=== PATIENT | female | born 1970 | race Caucasian/White ===

== ENCOUNTER 2016-10-11 09:58 | Emergency (ER) | payer OTHER ==
[~2016-10-11 09:58] MED LIST: ADVAIR 2501 DISK W/D; AMITRIPTYLINE H10 M1 PO; CELEXA20 MG; CELEXA40 M2 PO; CINNAMON500 M1 PO; CIPRO XR500 MG PO; CIPRO500 MG PO; CLARITIN10 M6 PO; CLARITIN10 M8 PO; CLARITIN10 MG; CLARITIN10 MG PO; COCONUT OIL100 GM MC; COMPAZINE10 M PO; COMPAZINE10 MG PO; COMPAZINE25 MG/SUPP PR; DOXYCYCLINE HY100 M3 PO; ESTRACE0.5 MG PO; ESTROVEN MOOD400 MCG PO; FLAGYL500 MG PO; FLOVENT DISKU100 MCG IH; GLUCOPHAGE1000 M1 PO; LISINOPRIL40 M1 PO; MAGNESIUM OXID400 M1 PO; METFORMIN HCL500 M2 PO; MOTRIN IB200 M1 PO; NASONEX17 GM; NEURONTIN300 M1 PO; NORCO 10-325 T1 EACH PO; NORCO 5-325 TA1 EACH PO; NORCO 5/325 TAB1 TAB PO; PERCOCET 5/3251 TAB PO; PREMARIN0.45 MG; PREMARIN0.625 MG; SINGULAIR10 M1 PO; SINGULAIR10 MG PO; TOPAMAX50 MG; ULTRAM50 MG PO; VIBRAMYCIN100 M1 PO; VITAMIN C250 M1 PO; VITAMIN D400 UNI5 PO; WELLBUTRIN XL150 M1 PO; WELLBUTRIN100 M2 PO; ZESTRIL20 M3 PO
[2016-10-11] MEDS ORDERED: ESTRACE1 M3 PO (10:15)
[2016-10-11 11:15] LABS: BASO % 0.7 % (0-2); BASO ABSOLUTE COUNT 0.1 tho/cmm (0.0-0.2); EOS % 5.1 % (0-7); EOSINOPHIL ABSOLUTE COUNT 0.6 tho/cmm (0.0-0.7); HCT-HEMATOCRIT 34.2 % (34.0-49.0); HGB-HEMOGLOBIN 11.3 gm/dl (12.0-15.5); IMMATURE GRANULOCYTES ABSOLUTE 0.04 tho/cmm (0-0.03); IMMATURE GRANULOCYTES PERCENT 0.4 % (0-0.3); LYMPH % 23.8 % (20-45); LYMPH ABSOLUTE COUNT 2.6 tho/cmm (0.8-4.5); MCH (MEAN CORPUSCULAR HGB) 28.3 pg (28.0-32.0); MCV (MEAN CELL VOLUME) 85.5 fl (82.0-96.0); MEAN PLATELET VOLUME 10.2 cmc (9.4-12.4); MONO % 5.9 % (0-12); MONOCYTE ABSOLUTE COUNT 0.6 tho/cmm (0.0-1.2); NEUTROPHIL ABSOLUTE COUNT 6.9 tho/cmm (1.6-8.0); NEUTROPHIL-AUTOMATED 6.9 tho/cmm (1.6-8.0); NEUTROPHILS % 64.1 % (40-80); PLATELET COUNT 279 tho/cmm (150-450); RED CELL DISTRIBUTION WIDTH 14.2 % (12.4-16.4); WHITE BLOOD COUNT 10.8 tho/cmm (4.0-10.0)
[2016-10-11 11:26] LABS: ANION GAP 19 mmol/L (0-20); BLOOD UREA NITROGEN 12 mg/dl (6-24); CALCIUM 8.6 mg/dl (8.5-10.5); CARBON DIOXIDE-VENOUS 22 mmol/L (22-32); CHLORIDE 101 mmol/l (96-110); CREATININE 0.66 mg/dl (0.50-1.10); GLUCOSE 235 mg/dL (70-110); SODIUM 138 mmol/L (135-145); eGFR VALUE FOR BLACK >90 mL/Min
[2016-10-11] MEDS ORDERED: PREVACID 24HR15 M1 PO (11:40)
[2016-10-11] MEDS ORDERED: ULTRAM50 M1 PO (13:33)
== END 2016-10-11 13:59 ==
LOC: EDMED 09:58
PROVIDERS: Nurse Practitioner Family
DX: M79.652 Pain in left thigh (principal); R06.00 Dyspnea, unspecified; E11.9 Type 2 diabetes mellitus without complications; I10 Essential (primary) hypertension; J45.909 Unspecified asthma, uncomplicated; Z90.89 Acquired absence of other organs; Z90.710 Acquired absence of both cervix and uterus; Z88.2 Allergy status to sulfonamides; Z88.0 Allergy status to penicillin; Z79.890 Hormone replacement therapy; Z79.899 Other long term (current) drug therapy